=== PATIENT | female | born 1940 | race Caucasian/White ===

== ENCOUNTER 2016-06-15 07:49 | Outpatient (CLI) | payer MEDICARE ==
[~2016-06-15] VITALS: Ht 157.5 cm; Wt 86.4 kg
[~2016-06-15 07:49] MED LIST: /WARF5TA PO; ACTO45TA; ASPI81TA63; ASPI81TA85 PO; AUGM500T34 PO; BACT2OIN2 TOP; CEPH2CAP PO; COLA100C PO; COUM7.5T PO; DULC10SU2 PR; GLIM2TAB PO; GLUC500T PO; LASI40TA PO; MECL-68 PO; METF500T PO; NYST100024 TOP; PRIN5TAB PO; SENO8.6T10 PO; SITA50TAB PO; TOPR25TA PO; TRIC145T19 PO; TYLE325T5 PO; VITA100066 PO; ZOCO40TA PO
[2016-06-15] MEDS ORDERED: IRON SUCROSE 25 MG in NS 50 ML IV ONE (08:00)
[2016-06-15] MEDS ORDERED: IRON SUCROSE 475 MG in NS 250 ML IV ONE (09:00)
== END 2016-06-15 12:45 | disposition home or self-care (01) ==
LOC: M INFU 07:49
PROVIDERS: ATTEND Internal Medicine Nephrology
DX: D50.9 Iron deficiency anemia, unspecified (principal)
CPT/HCPCS: 96365; 96366; J1756

== ENCOUNTER 2016-09-04 14:33 | Inpatient (IN) | payer MEDICARE ==
[~2016-09-04] VITALS: Ht 152.4 cm; Wt 88.2 kg
[~2016-09-04 14:33] MED LIST changes: -COLA100C PO; +COLA100C3 PO
[2016-09-04] MEDS ORDERED: NS 1,000 ML IV SCH (14:53)
[2016-09-04] MEDS ORDERED: TOUJ1.2I SC ×2 (14:58→16:17)
[2016-09-04] MEDS ORDERED: ASPIRIN 81 MG CHEW TABLET PO ONE (15:00)
[2016-09-04] MEDS ORDERED: LISI10TA4 PO ×2 (15:04→16:17)
[2016-09-04] MEDS ORDERED: SITA50TAB PO ×2 (15:04→16:17)
[2016-09-04] MEDS ORDERED: FEBU40TA PO ×2 (15:06→16:17)
[2016-09-04] MEDS ORDERED: FERR325T3 PO (15:06)
[2016-09-04 15:08] LABS: BASO % 0.6 % (0.0-1.0); EOS # 0.1 K/mm3 (0.0-0.50); EOS % 1.8 % (0.0-3.0); LARGE UNSTAINED CELL # 0.1 K/mm3 (0.0-0.4); LARGE UNSTAINED CELL % 1.8 % (0.0-4.0); LYMPH # 1.7 K/mm3 (1.5-4.5); LYMPH % 27.9 % (24.0-44.0); MEAN CORPUSCULAR HEMOGLOBIN 27.3 pg (27.0-33.0); MEAN CORPUSCULAR HGB CONC 33.2 g/dl (32.0-36.5); MEAN CORPUSCULAR VOLUME 82.4 fl (80.0-96.0); MONO # 0.3 K/mm3 (0.0-0.8); MONO % 4.9 % (0.0-5.0); NEUTROPHILS # 3.6 K/mm3 (1.8-7.7); PLATELET COUNT, AUTOMATED 273 k/mm3 (150-450); RED CELL DISTRIBUTION WIDTH 14.7 % (11.5-14.5); WHITE BLOOD COUNT 5.6 K/mm3 (4.0-10.0)
[2016-09-04 15:15] LABS: INR 2.54
--- NOTE | 2016-09-04 15:26 | REP ---
Clinical: Chest pain . Comparison: 10/16/2013 . Findings: The mediastinum and cardiac silhouette are stable and mild cardiomegaly is again suggested. The lung crane demonstrate chronic changes without acute consolidation, effusion, or pneumothorax. Skeletal structures are intact. Impression: Stable cardiomegaly and chronic changes. No obvious acute cardiopulmonary process. Signed by Vamsi Clemente MD 09/04/2016 03:18 P
[2016-09-04 15:31] LABS: ALBUMIN 3.7 GM/DL (3.2-5.2); ALBUMIN/GLOBULIN RATIO 0.86 (1.00-1.93); ALKALINE PHOSPHATASE 42 U/L (45-117); ALT/SGPT 22 U/L (12-78); ANION GAP 7 MEQ/L (8-16); AST/SGOT 20 U/L (15-37); BILIRUBIN,DIRECT < 0.1 MG/DL (0.0-0.2); BILIRUBIN,TOTAL 0.3 MG/DL (0.2-1.0); BLOOD UREA NITROGEN 39 MG/DL (7-18); CALCIUM LEVEL 9.2 MG/DL (8.8-10.2); CARBON DIOXIDE LEVEL 28 MEQ/L (21-32); CHLORIDE LEVEL 105 MEQ/L (98-107); CREATININE FOR GFR 2.09 MG/DL (0.55-1.02); GLOMERULAR FILTRATION RATE 24.6 (>39); GLUCOSE, FASTING 155 MG/DL (83-110); POTASSIUM SERUM 4.1 MEQ/L (3.5-5.1); SODIUM LEVEL 140 MEQ/L (136-145)
[2016-09-04] MEDS ORDERED: FENO145T PO (16:17)
[2016-09-04] MEDS ORDERED: WARF-23 PO (16:17)
[2016-09-04] MEDS ORDERED: ASPI1TAB PO (16:17)
[2016-09-04] MEDS ORDERED: SIMV10TA2 PO (16:17)
[2016-09-04] MEDS ORDERED: VITA-122 PO (16:17)
[2016-09-04] MEDS ORDERED: FURO40TA2 PO (16:17)
[2016-09-04] MEDS ORDERED: PHYTONADIONE 5 MG TAB PO ONE (21:15)
[2016-09-04] MEDS ORDERED: DEXTROSE 50% 50 ML SYRINGE IV PRN (22:45)
[2016-09-04] MEDS ORDERED: GLUCOSE 4 GM CHEW TABLET PO PRN (22:45)
[2016-09-04] MEDS ORDERED: GLUCAGON FOR INJ 1 MG VIAL (J1610) SC PRN (22:45)
[2016-09-05] VITALS (16 sets, daily range): BP systolic 105–155; BP diastolic 49–72
[2016-09-05] MEDS: SIMVASTATIN 10 MG TAB PO SCH ×2 (00:30→20:45)
--- NOTE | 2016-09-05 02:29 | HPEPDOC ---
General Date of Admission September 04, 2016 at 21:52 Primary Care Physician: YANNI LOPEZ PA-C Attending Physician: RISA HUBER DO Chief Complaint The patient is a 76-year-old female admitted with a reason for visit of Bradycardia. Source: Patient, Family, RN notes reviewed, Old records Exam Limitations: No limitations Associated Symptoms: Shortness of breath (with exertion), Weakness History of Present Illness Ms. Coombs is a 76-year-old female who presents to [facility]'s emergency Department with bradycardia. She is accompanied by her daughter. Past medical history significant for atrial fibrillation, cerebral vascular accident, hypertension, dyslipidemia, diabetes mellitus, gout, vitamin D deficiency, left cataract, left-sided sensorineural hearing loss, arthritis, and history of right hand first digit trigger finger, history of bilateral carpal tunnel syndrome. Patient reports that up until 2 months ago she was in usual state of health when she presented to her software design manager's office and they noted that her heart rate was 44 bpm. She followed up with her primary care provider at that time, but no abnormalities were noted. On 08/26/2016, patient presented to her data analytics analyst's office and they noted that she was bradycardic at that time. They discontinued her metoprolol. Patient states that data analytics analyst has patient on 1200 mL fluid restriction. Daughter requested that data analytics analyst records be sent to patient's primary care provider and bottle house quality control technician for review. Primary care provider reviewed documentation as did bottle house quality control technician and patient had an appointment with bottle house quality control technician and had EKG performed on Wednesday. Patient had external heart monitor placed in bottle house quality control technician's office. Patient reports that she has not been feeling well and somewhat weak over the last day or 2. Prior to admission patient was sitting watching television when she received a call from bottle house quality control technician's office stating that her heart rate was low. Patient was subsequently advised to present to the emergency department. Patient admits to shortness of breath with exertion, palpitations, constipation , ankle edema, numbness in the fingertips, weakness. Patient denies lightheadedness, dizziness, headache, acute vision changes, acute hearing changes, sore throat, epistaxis, hematemesis chest pain, orthopnea , PND, nausea, vomiting, abdominal pain, urinary frequency, urinary urgency, hematuria, dysuria, diarrhea, melena, hematochezia, peripheral edema, lesions, rashes, and explainable bruises, tingling. Hospitalist service was consulted and patient was admitted for further medical management. Home Medications Scheduled (Jozefsmitharobby Traylorwiltonchristine) 300 Unit/Ml Inj, 45 UNIT SC QHS, (Reported) Aspirin (Aspirin 81) 81 Mg Tab, 81 MG PO QHS, (Reported) Cholecalciferol (Vitamin D3) 1,000 Unit Tab, 1,000 UNIT PO DAILY, (Reported) Febuxostat (Uloric) 40 Mg Tab, 40 MG PO 3XW, (Reported) MON/WED/FRI Fenofibrate (Fenofibrate) 145 Mg Tab, 145 MG PO DAILY, (Reported) Furosemide (Furosemide) 40 Mg Tab, 40 MG PO DAILY, (Reported) Lisinopril (Lisinopril) 10 Mg Tab, 10 MG PO DAILY, (Reported) Simvastatin (Simvastatin) 10 Mg Tab, 10 MG PO QHS, (Reported) Sitagliptin (Januvia) 50 Mg Tab, 50 MG PO DAILY, (Reported) Warfarin Sod (Warfarin Sodium) 5 Mg Tab, 5 MG PO QPM, (Reported) Allergies Coded Allergies: No Known Allergies (Verified , 09/02/09) Past Medical History Medical History 1. Atrial fibrillation 2. Cerebrovascular accident 3. Hypertension 4. Dyslipidemia 5. Diabetes mellitus 6. Gout 7. Vitamin D deficiency 8. Left cataract 9. Left sensorineural hearing loss 10. Urinary incontinence 11. History of right hand first digit trigger finger 12. 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 Dyspnea, Lt Headedness Gastrointestinal: Reports: Constipation, Denies: Nausea, Vomiting, Abdominal Pain, Diarrhea, Melena, Hematochezia Genitourinary: Reports: Incontinence, Denies: Dysuria, Frequency, Hematuria Hematologic: Denies: Bruising Endocrine: Denies: Polydipsia, Polyphagia Musculoskeletal: Denies: Back Pain, Joint Pain, Muscle Pain Neurological: Reports: Weakness, Numbness (fingertips) Physical Examination General Exam: Positive: Alert, Cooperative, No Acute Distress Eye Exam: Positive: PERRLA, Conjunctiva & lids normal, EOMI, Negative: Sclera icteric, Ptosis ENT Exam: Positive: Atraumatic, Pharynx Normal, Tongue Midline, Nares Patent, Negative: Mucous membr. moist/pink, Pharyngeal Edema Neck Exam: Positive: Supple, Negative: JVD, thyromegaly, Lymphadenopathy Chest Exam: Positive: Clear to auscultation, Normal air movement Heart Exam: Positive: Bradycardic, Normal S1, Normal S2, Negative: Gallops, Murmurs, Rubs Telemetry: Positive: Bradycardia, AV Block (first-degree noted on EKG performed in the ED) Abdomen Exam: Positive: Normal bowel sounds, Soft, Negative: Tenderness, Hepatospenomegaly, Mass, Hernia Extremity Exam: Positive: Normal pulses (bradycardic), Negative: Clubbing, Cyanosis, Edema, Tenderness, Swelling Skin Exam: Negative: Rash, Lesion Neuro Exam: Positive: Normal Speech, Strength at 5/5 X4 ext, Cranial Nerves 3- 12 NL Other physical findings Chest x-ray IMPRESSION: Stable cardiomegaly and chronic changes. No obvious acute cardiopulmonary process. Vital Signs Vital Signs Date Time Temp Pulse Resp B/P (MAP) Pulse Ox O2 Delivery O2 Flow Rate FiO2 09/05/16 00:49 Room Air 09/05/16 00:08 98.6 38 21 155/70 (98) 99 Height (in): 60 Weight (kg): 90.4 BMI (kg): 38.9 Laboratory Data Labs 24H Laboratory Tests 2 09/04/16 14:58: White Blood Count 5.6, Red Blood Count 4.48, Hemoglobin 12.2, Hematocrit 36.9, Mean Corpuscular Volume 82.4, Mean Corpuscular Hemoglobin 27.3, Mean Corpuscular Hemoglobin Concent 33.2, Red Cell Distribution Width 14.7H, Platelet Count 273, Neutrophils (%) (Auto) 63.0, Lymphocytes (%) (Auto) 27.9, Monocytes (%) (Auto) 4.9, Eosinophils (%) (Auto) 1.8, Basophils (%) (Auto) 0.6, Neutrophils # (Auto) 3.6, Lymphocytes # (Auto) 1.7, Monocytes # (Auto) 0.3, Eosinophils # (Auto) 0.1, Basophils # (Auto) 0.0, Large Unclassified Cells % 1.8 , Large Unclassified Cells # 0.1, Prothrombin Time 27.4H, Prothromb Time International Ratio 2.54, Anion Gap 7L, Glomerular Filtration Rate 24.6L, Calcium Level 9.2, Aspartate Amino Transf (AST/SGOT) 20, Alanine Aminotransferase (ALT/SGPT) 22, Alkaline Phosphatase 42L, Total Bilirubin 0.3, Direct Bilirubin < 0.1, Total Creatine Kinase 113, Creatine Kinase MB 1.0, Creatine Kinase MB Relative Index 0.88, Troponin I < 0.02, B-Type Natriuretic Peptide 301H, Total Protein 8.0, Albumin 3.7, Albumin/Globulin Ratio 0.86L 09/04/16 17:59: Bedside Glucose (Misc Panel) 136H 09/04/16 23:00: Total Creatine Kinase 91, Creatine Kinase MB 1.0, Creatine Kinase MB Relative Index 1.09, Troponin I < 0.02 09/05/16 00:13: Bedside Glucose (Misc Panel) 149H CBC/BMP Laboratory Tests 09/04/16 14:58 Red Blood Count 4.48, Mean Corpuscular Volume 82.4, Mean Corpuscular Hemoglobin 27.3, Mean Corpuscular Hemoglobin Concent 33.2, Red Cell Distribution Width 14.7 H, Neutrophils (%) (Auto) 63.0, Lymphocytes (%) (Auto) 27.9, Monocytes (%) (Auto) 4.9, Eosinophils (%) (Auto) 1.8, Basophils (%) (Auto) 0.6, Neutrophils # (Auto) 3.6, Lymphocytes # (Auto) 1.7, Monocytes # (Auto) 0.3, Eosinophils # ( Auto) 0.1, Basophils # (Auto) 0.0 Assessment/Plan Ms. Coombs is a 76-year-old female with a ast medical history significant for atrial fibrillation, cerebral vascular accident, hypertension, dyslipidemia, diabetes mellitus, gout, vitamin D deficiency, left cataract, left -sided sensorineural hearing loss, arthritis, and history of right hand first digit trigger finger, history of bilateral carpal tunnel syndrome who presents with bradycardia and found to have a first-degree atrioventricular heart block. Plan / VTE VTE Prophylaxis Ordered?: Yes (TEDs, sequential's, and knee-high compression stockings) Plan Plan Bradycardia Patient was found to have atrioventricular heart block. Cardiology was consulted. Patient takes Coumadin for atrial fibrillation. This has been reversed using vitamin K. Patient will be going for pacemaker in the morning. Is currently nothing by mouth. Cardiac markers thus far have been negative. Diabetes mellitus Patient is currently nothing by mouth secondary to procedure being performed in the a.m. Ordered sliding scale insulin with fingersticks every 6 hours. Patient is also on hypoglycemic protocol. Acute kidney injury superimposed on chronic kidney disease Likely patient is a little dehydrated. We'll monitor with daily BMP. Patient is on a 1200 mL fluid restriction. Atrial fibrillation EKG in emergency room shows first-degree AV block. Anticoagulation has been reversed with vitamin K. She will be going for pacemaker placement in the a.m. Hypertension Secondary to acute kidney injury, will hold patient's blood pressure medications for the time being. Could consider restarting after procedure tomorrow. Gout Currently holding patient's home medication secondary to acute kidney injury superimposed on chronic kidney disease. Could consider restarting after patient' s procedure tomorrow. Dyslipidemia Continue patient's simvastatin 10 mg daily at bedtime and TriCor 145 mg daily. Vitamin D deficiency Continue patient's 1,000 units of vitamin D daily. Constipation Started patient on Topamax 5 mg daily and Senokot-S 1 tablet twice a day. Disposition Admit: Intensive care unit Anticipated hospitalization: 2 nights Attending: Dr. Mercado Consultation: Dr. Huggins Diet: Make NPO Activity: Bedrest (with commode) Diagnostics: Check Labs, Repeat Labs in AM Anticipated Discharge: Home SANDRA TAMEZME-I September 05, 2016 02:29
--- NOTE | 2016-09-05 04:43 | CR ---
DATE OF CONSULTATION: 09/04/2016 PRIMARY PHYSICIAN: [facility]. PRIMARY COMMUNITY HEALTH DIRECTOR: Dr. Huggins. SHELL FISHERMAN: Dr. Davis. HISTORY OF PRESENT ILLNESS: 76-year-old woman with a history of hypertension, hyperlipidemia, diabetes mellitus, chronic kidney disease, CVA, and gout, who was sent to the emergency room (ER) today. She was found to have 2:1 atrioventricular (AV) block. Patient is being admitted by hospitalist. Mrs. Alessandra Coombs was recently seen by her primary about a week ago and at that time, she was noticed to be bradycardic and the beta christiano/carvedilol was discontinued. I was informed of the situation on Wednesday and patient came in to the office and had a Holter that revealed sinus rhythm with first-degree AV block, Mobitz I, as well as Mobitz II second-degree AV block, and intermittent 2:1 AV block. Patient has been off the beta christiano since 08/26/2016, and for this reason, she was called to go the ER for further evaluation. She was admitted and the plan is to proceed with a permanent pacemaker. She has been having generalized weakness and occasional dizziness, but denies any chest pain. There is no manifestation of orthopnea, paroxysmal nocturnal dyspnea (PND) or increasing pedal edema. When I saw her in the ER this afternoon, she was lying supine in bed in no acute distress at rest and her daughter was at bedside. There is no report of bleeding. There is no nausea, vomiting, diarrhea, melena or hematemesis. She has a past medical history positive as mentioned above for diabetes mellitus , hypertension, chronic kidney disease, hyperlipidemia, and CVA for which she has been on Coumadin. There is no known history of atrial fibrillation, obstructive coronary artery disease, myocardial infarction, thyroid disorders. She does have a history of arthritis/gout and she has lost her hearing in the left ear. PAST SURGICAL HISTORY: None significant. MEDICATIONS: Prior to coming to the hospital: - Tylenol 500 mg as needed for arthritic pain - aspirin 81 mg by mouth daily - Lasix 40 mg by mouth daily - ferrous sulfate 324 mg by mouth three times weekly - Januvia one by mouth daily - fenofibrate 145 mg by mouth daily - lisinopril 10 mg by mouth daily - Coumadin as needed - simvastatin 10 mg by mouth daily - Toujeo 45 units subcutaneously daily at bedtime - she has been off the beta christiano since 08/26/2016 FAMILY HISTORY: Noncontributory. SOCIAL HISTORY: Patient does not smoke or abuse alcohol. She has a daughter who lives in the area and very supportive. ALLERGIES: No known drug allergies. ADVANCED DIRECTIVES: Patient is a FULL CODE. PHYSICAL EXAMINATION: Patient is alert and oriented, in no acute distress at rest and very pleasant. Vital signs in the ER upon arrival revealed a blood pressure of 164/60 with a pulse of 45, respirations 18, and oxygen saturation was 99% with a temperature of 97.7 degrees Fahrenheit. Examination of the head, ears, eyes, nose and throat: Atraumatic. Neck is supple. No jugular venous distention (JVD) or carotid bruits. The lungs were clear bilaterally on auscultation without any wheezing or crackles. The heart examination revealed normal S1, S2 without gallops. The point of maximal impulse (PMI) is not displaced. There is no rub. There is a systolic murmur grade 1-2 over 6 at the lower left sternal border and at the apex without any radiation. Abdomen is unremarkable. Extremities reveal trace bilateral ankle edema. Neurological examination grossly is negative for focal deficit. LABORATORIES: CBC revealed a WBC of 5.6, hemoglobin 12.2, hematocrit 36.9, and platelets 272,000. PT was 27.4 with an INR of 2.54. BMP revealed a glucose of 165, BUN 39, creatinine 2.09, GFR 24.6, sodium 140, potassium 4.1, chloride 105, CO2 28, calcium 9.2, AST 20, ALT 22, alkaline phosphatase 42, and total bilirubin 0.3. Direct bilirubin was less than 0.01, total protein 8.0, albumin 3.7. Serum troponin was less than 0.02. BNP was 301. Chest x-ray was done and was negative for any acute disease process. Telemetry revealed sinus rhythm with episode of 2:1 AV block. IMPRESSION: 2:1 atrioventricular (AV) block, symptomatic in this 76-year-old woman who has been previously on a beta christiano, but stopped since 08/26/2016. Patient needs a permanent pacemaker and this was discussed with her, as well as her daughter, patient has agreed to proceed. Case was discussed with Dr. Tomas Gonzalez, who is willing to implant the device for her. Her international normalized ratio (INR) is not quite therapeutic and she will be given a small dose of vitamin K and hopefully will proceed tomorrow with the implantation. She is currently stable and there is no need for a temporary device. She will be monitored. It was a pleasure to participate in the care in Mrs. Alessandra Coombs for her underlying cardiac condition. I will continue to monitor along with you while in the hospital. AQUILES
[2016-09-05] MEDS: HumaLOG INSULIN (NovoLOG) PER UNIT SC SCH ×4 (06:00→18:00)
[2016-09-05 06:39] LABS: MEAN CORPUSCULAR HEMOGLOBIN 26.8 pg (27.0-33.0); MEAN CORPUSCULAR HGB CONC 31.9 g/dl (32.0-36.5); MEAN CORPUSCULAR VOLUME 83.7 fl (80.0-96.0); RED CELL DISTRIBUTION WIDTH 14.6 % (11.5-14.5); WHITE BLOOD COUNT 5.3 K/mm3 (4.0-10.0)
[2016-09-05 06:43] LABS: INR 2.46
[2016-09-05 06:58] LABS: ANION GAP 6 MEQ/L (8-16); BLOOD UREA NITROGEN 37 MG/DL (7-18); CALCIUM LEVEL 8.8 MG/DL (8.8-10.2); CARBON DIOXIDE LEVEL 27 MEQ/L (21-32); CHLORIDE LEVEL 109 MEQ/L (98-107); CREATININE FOR GFR 1.83 MG/DL (0.55-1.02); GLOMERULAR FILTRATION RATE 28.6 (>39); GLUCOSE, FASTING 101 MG/DL (83-110); MAGNESIUM LEVEL 2.6 MG/DL (1.8-2.4); PHOSPHORUS LEVEL 3.2 MG/DL (2.5-4.9); POTASSIUM SERUM 3.9 MEQ/L (3.5-5.1); SODIUM LEVEL 142 MEQ/L (136-145)
[2016-09-05] MEDS ORDERED: PHYTONADIONE 2.5 MG **1/2 TAB PO ONE (09:30)
[2016-09-05] MEDS: VITAMIN D 1,000 INTERNATIONAL UNITS TABLET PO SCH (09:38)
[2016-09-05] MEDS: BISACODYL 5 MG TAB PO SCH (09:38)
[2016-09-05] MEDS: FENOFIBRATE 145 MG TAB (TRICOR) PO SCH (09:38)
[2016-09-05] MEDS: SENOKOT S TAB PO SCH ×2 (09:38→20:44)
--- NOTE | 2016-09-05 10:27 | IPN ---
DATE OF SERVICE: 09/05/2016 A 76-year-old female seen at bedside. No overnight issues reported. She does continue to have some significant bradycardia and does have cutaneous pacers in place. Dr. Huggins has been consulted; and to my understanding, she is waiting for implantable pacer. OBJECTIVE: Temperature is 98.1, pulse 44, respiratory rate is 21, blood pressure (BP) 115/57, SPO2 is 95% on room air. General: The patient appears to be in no acute distress. Is alert, pleasant. HEENT: Unremarkable. Lungs: Clear. Heart: Regular rate and rhythm. Abdomen: Soft. Extremities: No edema. No calf tenderness. LABORATORIES: White count is 5.3, hemoglobin 10.8, platelets 253. Sodium is 142, potassium 3.9, chloride 109, bicarbonate 27, anion gap 6, BUN is 37, creatinine 1.83, glucose 101, magnesium 2.6, troponin less than 0.02 times three. ASSESSMENT AND PLAN: 1. Symptomatic bradycardia. She does appear to have AV block. Her Coumadin has been reversed and currently waiting for pacemaker placement. 2. Atrial fibrillation. The patient is rate controlled. Again, she does have a significant AV block with bradycardia. Coumadin was reversed with vitamin K and awaiting pacemaker placement. 3. Diabetes. She remains nothing by mouth. Continue with fingersticks every 6 hours. Coverage with insulin as needed with hypoglycemic protocol in place after she has the pacemaker placed. She will need to be advanced on her diet. Consistent-carbohydrate diet, and we can start checking fingersticks before meals and at bedtime with sliding scale coverage. 4. Acute kidney injury superimposed on chronic kidney disease. Continue to monitor renal function. 5. Hypertension, stable. Will continue to monitor for now. Holding any rate-limiting drugs. 6. Gout, stable. 7. Dyslipidemia. Continue on statins. She takes Tricor daily, as well. 8. Vitamin D deficiency. Continue with supplementation. 9. Constipation. Continue with bowel regimen. 10. Deep venous thrombosis (DVT) prophylaxis. Thromboembolic deterrents (TEDs) and sequentials. Holding on Coumadin at this time. She does have a congestive heart failure, hypertension, age, diabetes, stroke (CHADS)-vascular disease, age, sex category (VASc) risk factor with her atrial fibrillation. She will need this to be resumed after the pacemaker has been placed.
[2016-09-05] MEDS ORDERED: PHYTONADIONE INJection 5 MG in NS 50 ML IV ONE (11:00)
[2016-09-05] MEDS ORDERED: PHYTONADIONE 5 MG TAB PO ONE (11:00)
[2016-09-05] MEDS: MUPIROCIN 2% OINT 22 GM TUBE TOP SCH ×3 (12:33→20:45)
--- NOTE | 2016-09-05 13:29 | IPN ---
DATE OF SERVICE: 09/05/2016 Mrs. Alessandra Coombs was seen earlier this morning. She was sitting in a chair in no acute distress at rest. She denies any chest pain, shortness of breath, palpitations, dizziness and lightheadedness. There is no diaphoresis. Her nurse was at bedside. She says that she had a good night and she was able to sleep well. She has no cough. There is no report of fever or chills. She was admitted yesterday. She was called in order to go to the ER for this admission because she was found to be bradycardic with underlying 2:1 AV block. She was on a beta-christiano and it was discontinued last week by her primary on/or about 05/29/2016 as an outpatient. On physical examination, patient is alert and oriented, in no acute distress at rest and her vital signs this morning when I saw her revealed a blood pressure of 140/56 with a pulse that varied to between 34 up to 46, respirations 18 to 20 and her maximum temperature is 98.1 degrees Fahrenheit with an oxygen saturation of 95-99% on room air. Examination of the head, ears, eyes, nose and throat: Atraumatic. Neck is supple. No jugular venous distention (JVD). The lungs are clear bilaterally on auscultation. The heart examination revealed an irregular heart sound without gallops. The PMI is not displaced. There is no rub. Abdomen is unremarkable. Extremities revealed no significant pedal edema. LABORATORIES: CBC done today revealed a WBC of 5.3, hemoglobin 10.8, hematocrit 33.8 and platelets 253,000. BMP revealed a sodium of 142, potassium 3.9, chloride 109, CO2 27, BUN 37, creatinine 1.83 and GFR 28.6, fasting glucose 101, and calcium 8.8. Serum magnesium is 2.6. Serum Troponin remained negative as less than 0.02. PT today is 26.7 with an INR of 2.46. Telemetry was reviewed and revealed 2:1 AV block. IMPRESSION: 76-year-old woman with history of hypertension, diabetes mellitus, hyperlipidemia, and CVA, was symptomatic with dizziness and lightheadedness and her beta-christiano was discontinued by her primary about a week ago and then she was found to be bradycardic with 2:1 AV block. The patient was admitted yesterday. She needs a permanent pacemaker and this was discussed with her as well as her daughter. This also was discussed with Dr. Tomas Gonzalez yesterday and today, and the plan is to proceed with a permanent pacemaker tomorrow morning if she remains stable. She already has received a total of 5 mg of vitamin K and Dr. Gonzalez plans to give her some extra dose so we can proceed tomorrow. We can proceed tomorrow with the permanent pacemaker implantation. This was discussed with the patient, and she is in agreement. Yesterday in the ER, her blood pressure was elevated but it seemed that this has been stable. She will be monitored. Her labs, her BUN and creatinine remain stable, and her GFR seems to have improved, so she continues to have good cardiac output. While in the hospital, I will check her thyroid function. JASOND
[2016-09-05 14:22] LABS: INR 2.03
[2016-09-06] VITALS (10 sets, daily range): BP systolic 118–175; BP diastolic 46–71
[2016-09-06 04:47] LABS: MEAN CORPUSCULAR HEMOGLOBIN 27.2 pg (27.0-33.0); MEAN CORPUSCULAR HGB CONC 32.7 g/dl (32.0-36.5); MEAN CORPUSCULAR VOLUME 83.2 fl (80.0-96.0); RED CELL DISTRIBUTION WIDTH 14.7 % (11.5-14.5); WHITE BLOOD COUNT 5.8 K/mm3 (4.0-10.0)
[2016-09-06 05:01] LABS: INR 1.34
[2016-09-06 05:16] LABS: CALCIUM LEVEL 9.1 MG/DL (8.8-10.2); CREATININE FOR GFR 1.71 MG/DL (0.55-1.02)
[2016-09-06] MEDS: HumaLOG INSULIN (NovoLOG) PER UNIT SC SCH ×4 (05:50→17:33)
[2016-09-06] MEDS: BISACODYL 5 MG TAB PO SCH (08:22)
[2016-09-06] MEDS: SENOKOT S TAB PO SCH ×2 (08:23→20:06)
[2016-09-06] MEDS: MUPIROCIN 2% OINT 22 GM TUBE TOP SCH (08:23)
[2016-09-06] MEDS ORDERED: ISOVUE-300 61% 50ML VIAL (Q9967) As Ordered ONE (08:40)
[2016-09-06] MEDS ORDERED: LIDOCAINE 1% SDV INJ 30 ML VIAL As Ordered ONE (08:40)
[2016-09-06] MEDS ORDERED: ceFAZolin 2 GM/D5W 50 ML IV BAG (J0690) As Ordered ONE (08:55)
--- NOTE | 2016-09-06 09:09 | IPN ---
DATE: 09/06/2016 76-year-old female seen at bedside. Resting comfortably. She is scheduled for pacemaker insertion later this morning. Denies any chest pain, palpitations, nausea, vomiting, shortness of breath. No abdominal pain. OBJECTIVE: Temperature is 98.8, pulse 37, respiratory rate 20, BP 131/56, SPO2 is 94% on room air. General: The patient appears to be in no acute distress. She is alert and oriented, pleasant. HEENT: Unremarkable. Lungs: Clear. Heart: Regular rate. Abdomen: Soft, obese, nontender. Extremities: No edema or calf tenderness. LABORATORY DATA: White count 5.8, hemoglobin 11, platelets are 233,000, INR 1.34, sodium 142, potassium 4.0, chloride 109, bicarb 25, anion gap 8, BUN 37, creatinine 1.71, glucose 120, troponin times three is negative. ASSESSMENT/PLAN: 1. Symptomatic/significant bradycardia with what appears to be AV block. I appreciate Dr. Huggins and Dr. Gonzalez's assistance. The patient is to have a pacemaker placed later this morning. Her INR is below 2. Coumadin is currently on hold. We will resume after placement pending further recommendations by cardiology. 2. Atrial fibrillation. The patient is technically rate controlled, however, I am concerned that she does have bradycardia and she is scheduled for pacemaker placement later this morning 3. Diabetes. She does continue nothing by mouth for her procedure, we will advance her diet once the procedure is done and resume consistent carb diet with sliding scale insulin based on fingersticks before meals and at bedtime. 4. Acute kidney injury superimposed on chronic kidney disease (CKD). We will continue to monitor renal function, which appears to be stable. 5. Hypertension, stable. Hold parameters on her medications. 6. Gout, stable. 7. Dyslipidemia. Continue statins and Tricor. 8. Vitamin D deficiency. She receives supplementation. 9. Constipation. Continue bowel regimen. 10. Deep venous thrombosis (DVT) prophylaxis with thromboembolic deterrent stockings (TEDS) and sequential compression devices (SCDs). Coumadin is on hold currently. DISPOSITION: Anticipate that she will have the pacemaker placement today. We will want to continue to follow for the next 24-48 hours to see how she does with this.
--- NOTE | 2016-09-06 09:10 | ECGEPIP ---
Stationary ECG Study [facility] - ED Test Date: 2016-09-04 Pat Name: MARIFER RAMOS Department: Room: - Gender: F Sensitized Paper Tester: marco : 1940 Requested By: Barbara Alarcon Order Number: [id number] Reading MD: Uziel Gaming Measurements Intervals [place] Rate: 42 P: 83 IA: 269 QRS: 23 QRSD: 110 T: 33 QT: 459 QTc: 385 Interpretive Statements SINUS BRADYCARDIA WITH FIRST DEGREE AV BLOCK SIMILAR TO 10/16/13 Electronically Signed On 09-06-2016 9:10:45 EDT by Uziel Gaming
[2016-09-06] MEDS ORDERED: PROPOFOL 500 MG/50 ML VIAL As Ordered ONE (09:40)
[2016-09-06] MEDS ORDERED: MIDAZOLAM INJ 2 MG/2 ML VIAL (J2250) As Ordered ONE (09:40)
[2016-09-06] MEDS ORDERED: ePHEDrine SULFATE 25 MG/5 ML(5MG/ML) SYRINGE As Ordered ONE (10:15)
[2016-09-06] MEDS ORDERED: fentaNYL 100 MCG/2 ML INJECTION (J3010) As Ordered ONE (10:52)
[2016-09-06] MEDS ORDERED: NEOSPORIN TOP OINT 15GM As Ordered ONE (10:52)
[2016-09-06] MEDS ORDERED: PROPOFOL 200 MG/20 ML VIAL As Ordered ONE (10:54)
[2016-09-06] MEDS ORDERED: NEOSPORIN TOP OINT 15GM XX ONE (11:24)
--- NOTE | 2016-09-06 11:35 | REP ---
Clinical: Pacemaker placement. Technique: Single fluoroscopic image. Findings: Single intraoperative fluoroscopic image demonstrates dual chamber pacemaker wires in satisfactory position overlying the right atrium and right ventricle. Total fluoroscopic time 4 minutes 58 seconds. Impression: Pacemaker leads in satisfactory position. Signed by Vamsi Clemente MD 09/06/2016 11:26 A
--- NOTE | 2016-09-06 11:47 | REP ---
Clinical: Status post pacemaker. Comparison: 09/04/2016. Findings: Dual chamber pacemaker with leads overlying the right atrium and right ventricle. No pneumothorax. Mediastinum and cardiac silhouette stable. Lung crane demonstrate diffuse chronic interstitial changes without obvious acute consolidation or effusion. Skeletal structures stable. Impression: Status post pacemaker. No pneumothorax. Diffuse chronic stable interstitial changes. Signed by Vamsi Clemente MD 09/06/2016 11:38 A
--- NOTE | 2016-09-06 12:13 | RO ---
DATE OF PROCEDURE: 09/06/2016 PREOPERATIVE DIAGNOSIS: Symptomatic Mobitz type II second degree AV block. POSTOPERATIVE DIAGNOSIS: Symptomatic Mobitz type II second degree AV block. FINDINGS: Symptomatic Mobitz type II second degree AV block. PROCEDURE PERFORMED: Implantation of a permanent [employer] dual chamber pacemaker system. SURGEON: Tomas Gonzalez MD [employer]ALL [employer] DEPARTMENT SUPERVISOR: None. ANESTHESIA: 1% lidocaine local anesthetic/monitored anesthetic care. SPECIMENS: None. ESTIMATED BLOOD LOSS: Less than 10 mL. REPLACED: No blood products were placed. DRAINS: None. COMPLICATIONS: None. DESCRIPTION OF PROCEDURE: The patient was prepped and draped over the left pectoral region. 3M Ioban film was applied. Lidocaine 1% was used for local anesthetic. The left subclavian vein was entered percutaneously with a micropuncture needle with the guidance from a left subclavian vein venogram performed with a total volume of 15 mL of a mixture of three-quarters contrast/one-quarter normal saline. This was then Guidewire exchanged with the Guidewire that came with one of the 8 Icelandic sheaths. Next, an incision about 1 cm below the entrance site of the Guidewire and approximately parallel to the left clavicle was made, about 3 inches in length, using a [employer] PEAK PlasmaBlade. The PEAK PlasmaBlade was used to dissect through the fatty layer and through the fibrous Brenna's fascia. The pacemaker pocket was then formed in a caudal direction using blunt dissection, using two fingers to separate the preperitoneal fascia from the Brenna's fascia. Next, the Guidewire was pulled through the skin into the incision site. Next, another micropuncture needle was used to get separate venous access at the level of the pectoral muscle, more lateral to the first Guidewire, using the first Guidewire as a radiographic marker. This was then Guidewire exchanged for the other Guidewire that came with the other 8 Icelandic sheath. Next, an #8 Icelandic sheath was placed over the more lateral of the of the guidewires, was used for vein access for the ventricle lead. The ventricle lead was placed into the right ventricular apex position and secured with 10 turns. This first position was not satisfactory with regards to R wave amplitude and therefore the lead was unscrewed and repositioned at another position in the right ventricular apex, which was found to be satisfactory electrically and anatomically. 10 volts high output pacing did not result in any diaphragm stimulation by palpation on both sides of the diaphragm. Next, the 8 Icelandic sheath was removed and the ventricle lead was secured to the pectoral muscle using the supplied tie down sleeve using three individual sutures consisting of #0 Ethibond. Next, the other 8 Icelandic sheath was placed over the more medial of the guidewires and was used for vein access for the atrial lead. The atrial lead was placed into the right atrial appendage position and was secured with a total of 10 turns. This position was found to be electrically and anatomically satisfactory and without any diaphragm stimulation observed by palpation on both sides with 10 volts high output pacing. The 8 Icelandic sheath was then broken apart and removed and the atrial lead was secured to the pectoral muscles using three individual sutures consisting of #0 Ethibond. Next, another #0 Ethibond suture was placed at the pectoral muscle floor to serve as the tie down for the pacemaker pulse generator. Next, I took a medium sized TYRX antimicrobial envelope and cut it into six pieces. These six pieces were placed into the pacemaker pocket. Next, the ventricular lead and atrial lead terminal pins were placed into their respective ports in the header of the pacemaker pulse generator and each one was tightened by securing the set screws with a hex screwdriver. The excess lead material was then coiled underneath the pacemaker pulse generator and place along with the pacemaker pulse generator into the pacemaker pocket with the excess lead material below and pulse generator on top. The pulse generator was then secured to the pectoral muscle with the previously placed #0 Ethibond suture. The deep layer was closed using individual sutures consisting of #2-0 Vicryl. An additional four sutures consisting of #3-0 Vicryl was used to help approximate the more superficial layer. Next, sutures were used to close the skin. Following this, triple antibiotic ointment was applied over the incision followed by a dry dressing, followed by a Bioclusive dressing. The pacemaker pulse generator implanted was a [employer] Assurity MRI, model [id number] with serial number [id number]. The right atrial lead implanted was a [employer] Tendril MRI with model number [id number], which was 46 cm and had serial number [id number]. Testing of atrial lead with the PSA analyzer showed capture threshold of 1.4 volts at 0.4 milliseconds with P wave amplitude of 2.7 millivolts and lead impedance of 654 ohms. Device based testing showed capture threshold of 1.2 volts at 0.4 milliseconds with lead impedance of 530 ohms, and P wave amplitude of 1.8 millivolts. The right ventricle lead implanted was a [employer] Tendril MRI, model number [id number], which was 52 cm in length and had serial number [id number]. Testing of the ventricular lead with the PSA analyzer showed a capture threshold of 0.7 volts at 0.4 milliseconds with R wave amplitude of 9.3 millivolts and lead impedance of 706 ohms. Device based testing in the operating room showed a capture threshold of 0.7 volts at 0.4 milliseconds with lead impedance of 710 ohms and R wave amplitude of 11.5 millivolts. cc: RINA Coker MD Khalid Sindhu, MD
[2016-09-06] MEDS ORDERED: fentaNYL 100 MCG/2 ML INJECTION (J3010) IV PRN (12:15)
[2016-09-06] MEDS ORDERED: LR 1,000 ML IV SCH (12:15)
[2016-09-06] MEDS ORDERED: ONDANSETRON 4MG/2ML VIAL (J2405) IV PRN (12:15)
[2016-09-06] MEDS ORDERED: ACETAMINOPHEN TAB 650MG DOSE (2X325MG) PO PRN (12:15)
[2016-09-06] MEDS: VITAMIN D 1,000 INTERNATIONAL UNITS TABLET PO SCH (12:38)
[2016-09-06] MEDS: FENOFIBRATE 145 MG TAB (TRICOR) PO SCH (12:38)
--- NOTE | 2016-09-06 19:21 | ECGEPIP ---
Stationary ECG Study [facility] Test Date: 2016-09-06 Pat Name: MARIFER RAMOS Department: Room: [place] [address] Gender: F Law Firm Consultant: JONATHAN : 1940 Requested By: Tomas Gonzalez Order Number: [id number] Reading MD: Blu Huggins Measurements Intervals [place] Rate: 69 P: 94 MS: 148 QRS: -70 QRSD: 168 T: 85 QT: 474 QTc: 511 Interpretive Statements ELECTRONIC ATRIAL PACEMAKER ELECTRONIC VENTRICULAR PACEMAKER ABNORMAL RHYTHM ECG LAST TRACING ON 09/04/2016 AT 14:52:55. PATIENT WAS IN SINUS RHYTHM WITH A SLOW HEART RATE AND 2-1 AV BLOCK Electronically Signed On 09-06-2016 19:21:26 EDT by Blu Huggins
[2016-09-06] MEDS: SIMVASTATIN 10 MG TAB PO SCH (20:05)
[2016-09-07 00:06] VITALS: BP 146/61
[2016-09-07 04:00] VITALS: BP 150/65
[2016-09-07 04:36] LABS: MEAN CORPUSCULAR HEMOGLOBIN 27.5 pg (27.0-33.0); MEAN CORPUSCULAR HGB CONC 33.2 g/dl (32.0-36.5); RED CELL DISTRIBUTION WIDTH 14.6 % (11.5-14.5); WHITE BLOOD COUNT 5.1 K/mm3 (4.0-10.0)
[2016-09-07 04:53] LABS: CREATININE FOR GFR 1.37 MG/DL (0.55-1.02)
[2016-09-07 04:54] LABS: CALCIUM LEVEL 8.5 MG/DL (8.8-10.2); POTASSIUM SERUM 4.1 MEQ/L (3.5-5.1)
[2016-09-07] MEDS: HumaLOG INSULIN (NovoLOG) PER UNIT SC SCH ×4 (07:30→17:22)
[2016-09-07 08:00] VITALS: BP 183/65
--- NOTE | 2016-09-07 08:04 | REP ---
Clinical: Status post pacemaker placement. Comparison: 09/06/2016. Technique: PA and lateral. Findings: Dual lead pacemaker with leads overlying the right atrium and right ventricle. No pneumothorax. Mediastinum and cardiac silhouette are stable and within normal limits. Lung crane demonstrate chronic interstitial changes without focal consolidation, effusion, or pneumothorax. Skeletal structures demonstrate degenerative changes. Impression: Status post pacemaker with leads in satisfactory position. No pneumothorax. Chronic stable changes without obvious acute cardiopulmonary process. Signed by Vamsi Clemente MD 09/07/2016 07:56 A
[2016-09-07] MEDS: ASPIRIN 81 MG ENTERIC TAB PO SCH (08:11)
[2016-09-07] MEDS: FENOFIBRATE 145 MG TAB (TRICOR) PO SCH (08:12)
[2016-09-07] MEDS: VITAMIN D 1,000 INTERNATIONAL UNITS TABLET PO SCH (08:12)
[2016-09-07] MEDS: ASCORBIC ACID 250 MG TAB PO SCH ×2 (09:00→21:00)
[2016-09-07] MEDS: SENOKOT S TAB PO SCH ×2 (09:00→21:00)
[2016-09-07] MEDS: BISACODYL 5 MG TAB PO SCH (09:00)
--- NOTE | 2016-09-07 10:46 | IPN ---
DATE: 09/07/2016 Alessandra is seen in intensive care unit (ICU). She had a pacemaker inserted, dual chamber pacer by Dr. Gonzalez last night. It is functioning well by telemetry. Blood pressure is elevated today 183/65. No chest pain or shortness of breath. Blood pressure 183/65, pulse 70, 99% oxygen saturation. She is smiling, alert, conversant. Lungs clear. Heart: Regular rhythm. Abdomen: Soft, nontender. No peripheral edema. CBC normal. Creatinine is down to 1.3. INR is 1.3. IMPRESSION: 1. Symptomatic bradycardia status post dual chamber pacer. 2. Atrial fibrillation. Restart warfarin. 3. Acute kidney injury. Creatinine is back to baseline. 4. Hypertension. Medications adjusted today. 5. Diabetes. Blood sugar is under adequate control. Just scant amount of coverage.
[2016-09-07] MEDS: amLODIPine 5 MG TAB PO SCH (10:49)
--- NOTE | 2016-09-07 13:37 | IPN ---
DATE: 09/07/2016 Mrs. Alessandra Coombs was seen this morning, she was in supine in bed in no acute distress at rest. She stated she feels much better since the permanent pacemaker implantation done yesterday by Dr. Tomas Gonzalez for symptomatic 2-1 AV block. She denies any dizziness, palpitations. Her blood pressure was elevated today and she was started on amlodipine by Dr. Mclaughlin. She denies any bleeding. She has some mild discomfort at the site of the pacemaker implantation in the left upper chest. On physical examination, patient is alert and oriented, in no acute distress at rest and her last vital signs done at about 8 this morning revealed a blood pressure of 183/65 with pulse of 69, respirations 17 and maximum temperature is 98.2 degrees Fahrenheit with an oxygen saturation of 99% on 2 liters nasal cannula. Examination of the head: Atraumatic. Neck is supple, no jugular venous distention (JVD). The lungs were clear bilaterally to auscultation without any wheezing or crackles. Heart examination revealed normal S1, S2 for gallops. The PMI is not displaced. There is no rub. Abdomen is unremarkable. Extremities reveal trace bilateral ankle edema. LABS: BMP done today 09/07/2016 revealed a sodium of 140, potassium 4.1, chloride 110, CO2 25, BUN 26, creatinine 1.7, glomerular filtration rate 40.0, fasting glucose 105 and calcium 8.5. On admission, the BUN and creatinine were 39 and 2.09 respectively with a glomerular filtration rate of 24.6. CBC done today revealed a WBC of 5.1, hemoglobin 11.0, hematocrit 33.1 and platelets 225,000. Electrocardiogram was reviewed done on 09/06/2016 at 11:36:44. It revealed AV Pacing activity at a rate of 69 beats per minute. Mrs. Alessandra Coombs is stable, status post permanent pacemaker implantation for symptomatic 2-1 AV block. The pacemaker was checked today by Dr. Gonzalez and it is working fine. If there is no other medical concern, patient can be discharged home today and she has an appointment with Dr. Tomas Gonzalez in his office in about a week and I will see her at my office within 1-2 weeks. She was restarted on beta christiano, she is now on amlodipine. In the past, she was on lisinopril but has been on hold in the hospital and kidney function has improved. She has been seeing Dr. Davis and he will address that as outpatient. There is a questionable history of atrial fibrillation and this will be addressed as outpatient. AQUILES
[2016-09-07] MEDS: METOPROLOL SUCC (TopROL XL) 50MG **XL** TAB PO SCH (13:57)
[2016-09-07 16:00] VITALS: BP 130/61
[2016-09-07] MEDS ORDERED: WARFARIN SOD 5 MG TAB PO SCH (17:00)
[2016-09-07] MEDS ORDERED: ATORVASTATIN 10 MG TAB PO SCH (18:00)
[2016-09-07 20:00] VITALS: BP 135/61
[2016-09-07] MEDS ORDERED: HumaLOG INSULIN (NovoLOG) PER UNIT SC SCH (21:00)
[2016-09-08] VITALS: BP 139/96
[2016-09-08 04:00] VITALS: BP 150/64
[2016-09-08 04:54] LABS: MEAN CORPUSCULAR HEMOGLOBIN 27.8 pg (27.0-33.0); MEAN CORPUSCULAR HGB CONC 33.7 g/dl (32.0-36.5); MEAN CORPUSCULAR VOLUME 82.3 fl (80.0-96.0); RED CELL DISTRIBUTION WIDTH 14.5 % (11.5-14.5); WHITE BLOOD COUNT 5.8 K/mm3 (4.0-10.0)
[2016-09-08 05:06] LABS: INR 1.22
[2016-09-08 05:12] LABS: CALCIUM LEVEL 9.4 MG/DL (8.8-10.2); CREATININE FOR GFR 1.26 MG/DL (0.55-1.02); GLOMERULAR FILTRATION RATE 44.1 (>39); POTASSIUM SERUM 4.3 MEQ/L (3.5-5.1)
[2016-09-08 08:00] VITALS: BP 180/77
[2016-09-08] MEDS: HumaLOG INSULIN (NovoLOG) PER UNIT SC SCH ×2 (08:29→12:27)
[2016-09-08] MEDS: METOPROLOL SUCC (TopROL XL) 50MG **XL** TAB PO SCH (08:41)
[2016-09-08] MEDS: ASPIRIN 81 MG ENTERIC TAB PO SCH (08:41)
[2016-09-08] MEDS: VITAMIN D 1,000 INTERNATIONAL UNITS TABLET PO SCH (08:41)
[2016-09-08 08:42] VITALS: BP 175/75
[2016-09-08] MEDS: SENOKOT S TAB PO SCH (08:42)
[2016-09-08] MEDS: amLODIPine 5 MG TAB PO SCH (08:42)
[2016-09-08] MEDS: BISACODYL 5 MG TAB PO SCH (09:00)
[2016-09-08] MEDS: ASCORBIC ACID 250 MG TAB PO SCH (09:00)
[2016-09-08 10:00] VITALS: BP 166/72
[2016-09-08] MEDS ORDERED: ASCO25TA PO (11:00)
[2016-09-08] MEDS ORDERED: METO-207 PO (11:00)
[2016-09-08] MEDS ORDERED: ASPI81TAEC PO (11:00)
[2016-09-08] MEDS ORDERED: AMLO5TAB2 PO (11:00)
[2016-09-08] MEDS ORDERED: ACET65TA PO (11:00)
[2016-09-08 12:00] VITALS: BP 169/74
--- NOTE | 2016-09-09 08:01 | DSES ---
DATE OF ADMISSION: 09/04/2016 DATE OF DISCHARGE: 09/08/2016 PRIMARY CARE PROVIDER: Bar Murray PA-C DISCHARGE DIAGNOSES: 1. Symptomatic 2:1 atrioventricular (AV) block, status post permanent pacemaker implantation. 2. Paroxysmal atrial fibrillation. On Coumadin. 3. Acute kidney injury on chronic kidney disease stage III. 4. Hypertension. 5. Diabetes. 6. Gout. 7. Dyslipidemia. 8. Vitamin D deficiency. 9. History of cerebrovascular accident (CVA). 10. Left ventricular diastolic dysfunction. DISCHARGE MEDICATIONS: - amlodipine 5 mg daily - metoprolol succinate 50 mg daily - aspirin 162 mg daily - ascorbic acid 250 mg by mouth twice a day - Tylenol 650 mg by mouth every 4 hours as needed pain - colecalciferol 1000 units by mouth daily - Uloric 40 mg by mouth three times per week - fenofibrate 145 mg by mouth daily - Lasix 40 mg by mouth daily - simvastatin 10 mg at bedtime - Toujeo SoloStar 45 units at bedtime - Coumadin 5 mg in the evening HOSPITAL COURSE: This is a 76-year-old female who was seen by her primary care provider 1 week prior to admission and was found to be bradycardic. The patient was sent to [facility] and had a Holter monitor done. The patient was found to have Mobitz type I, as well as Mobitz II, 2nd-degree AV block and intermittent 2:1 AV block. The patient continued to have symptomatic bradycardia in spite of being off AV yuly-blocking agents, so she was sent to the emergency room for further evaluation, and she was subsequently admitted for placement of permanent pacemaker. On admission, the patient was found to have mild worsening of renal function with acute kidney injury on chronic kidney disease, so the patient's lisinopril and Lasix were held in the hospital. The patient underwent permanent pacemaker placement on 09/06/2016 without any issues. The patient's renal function subsequently improved, and creatinine came back to baseline. The patient's blood pressure medications were adjusted. Her lisinopril was stopped, and the patient was started on amlodipine and metoprolol. At present, the patient's is functionally at baseline, does not have any complaints, and with stable vital signs, and is being discharged home. PHYSICAL EXAMINATION: VITAL SIGNS: Temperature 98, pulse 69, respiratory rate 18, blood pressure 169/74, pulse oximetry 95% in room air. GENERAL: The patient awake, alert, oriented times three, sitting up in chair, in no acute distress. HEENT: Normocephalic, atraumatic. Moist mucous membranes. Anicteric eyes. CHEST: Clear to auscultation. CARDIOVASCULAR: S1, S2, regular. Monitor shows mostly paced rhythm. No murmur, rub, or gallop. ABDOMEN: Obese, soft, nontender. Bowel sounds present. EXTREMITIES: 1+ ankle edema. LABORATORY DATA: WBC 5.8, hemoglobin 12.6, platelet 253. Sodium 138, potassium 4.3, chloride 108, bicarbonate 25, BUN 20, creatinine 1.26, glucose 140, calcium 9.4. INR was 1.22. DISPOSITION: The patient is discharged home in a stable condition. DISCHARGE INSTRUCTIONS: The patient to followup with Dr. Gonzalez in 1 week for removal of maciej. The patient to followup with Dr. Huggins in 2 weeks. The patient to followup with primary care provider in 1 month. The patient to followup with construction operations manager in 1 week. Carbohydrate-consistent 5-zdqf-aevoad diet. Activity as tolerated.
== END 2016-09-08 13:44 | disposition home or self-care (01) | DRG 243 ==
LOC: M ED 15:44 → M ED INP 21:52 → M ICU 23:59
PROVIDERS: ADMIT Internal Medicine; ATTEND Internal Medicine Nephrology
PROC: 02HK3JZ Insertion of Pacemaker Lead into Right Ventricle, Percutaneous Approach (ICD-10-PCS; 2016-09-06)
PROC: 02H63JZ Insertion of Pacemaker Lead into Right Atrium, Percutaneous Approach (ICD-10-PCS; 2016-09-06)
PROC: 0JH606Z Insertion of Pacemaker, Dual Chamber into Chest Subcutaneous Tissue and Fascia, Open Approach (ICD-10-PCS; principal; 2016-09-06 09:00)
DX: I44.1 Atrioventricular block, second degree (principal); N17.9 Acute kidney failure, unspecified; I48.0 Paroxysmal atrial fibrillation; I12.9 Hypertensive chronic kidney disease with stage 1 through stage 4 chronic kidney disease, or unspecified chronic kidney disease; E78.5 Hyperlipidemia, unspecified; E11.9 Type 2 diabetes mellitus without complications; M10.9 Gout, unspecified; E55.9 Vitamin D deficiency, unspecified; R32 Unspecified urinary incontinence; K59.00 Constipation, unspecified; H26.9 Unspecified cataract; I51.89 Other ill-defined heart diseases; N18.3 Chronic kidney disease, stage 3 (moderate); H90.5 Unspecified sensorineural hearing loss; M19.90 Unspecified osteoarthritis, unspecified site; Z79.01 Long term (current) use of anticoagulants; Z79.899 Other long term (current) drug therapy; Z86.73 Personal history of transient ischemic attack (TIA), and cerebral infarction without residual deficits; Z79.82 Long term (current) use of aspirin; Z79.4 Long term (current) use of insulin; Z79.84 Long term (current) use of oral hypoglycemic drugs

== ENCOUNTER → 2016-10-06 | Outpatient (REF) | payer MEDICARE ==
[~2016-10-06] MED LIST changes: +AMLO5TAB2 PO; +ASCO25TA PO; +ASPI1TAB PO; +ASPI81TAEC PO; +BACT2OIN10 TOP; -BACT2OIN2 TOP; -COLA100C3 PO; +COLA100C5 PO; +FEBU40TA PO; +FENO145T PO; +FERR325T3 PO; +FURO40TA2 PO; +LISI10TA4 PO; +MAPA325T3 PO; +METO1TAB7 PO; -NYST100024 TOP; +NYST1POW9 TOP; +SIMV10TA2 PO; +TOUJ1.2I SC; +VITA-122 PO; +WARF-23 PO
[2016-10-06 12:18] LABS: INR 1.89
[2016-10-06 16:31] LABS: FERRITIN 236 NG/ML (8-252)
== END ==
LOC: M SFHCLERA 08:47
PROVIDERS: ATTEND Physician Assistant
DX: D50.9 Iron deficiency anemia, unspecified (principal); E11.22 Type 2 diabetes mellitus with diabetic chronic kidney disease; I48.0 Paroxysmal atrial fibrillation

== ENCOUNTER → 2017-01-11 | Outpatient (REF) | payer MEDICARE ==
[2017-01-11 18:21] LABS: INR 2.24
[2017-01-11 20:32] LABS: CALCIUM LEVEL 9.7 MG/DL (8.8-10.2); CREATININE FOR GFR 1.42 MG/DL (0.55-1.02); GLOMERULAR FILTRATION RATE 38.4 (>39); POTASSIUM SERUM 4.1 MEQ/L (3.5-5.1)
== END ==
LOC: M SFHCLERA 14:38
PROVIDERS: ATTEND Family Medicine
DX: E11.622 Type 2 diabetes mellitus with other skin ulcer (principal); L97.809 Non-pressure chronic ulcer of other part of unspecified lower leg with unspecified severity; I48.91 Unspecified atrial fibrillation; Z51.81 Encounter for therapeutic drug level monitoring; Z79.01 Long term (current) use of anticoagulants
CPT/HCPCS: 80048; 83036; 85610; G0463

== ENCOUNTER 2017-03-05 12:25 | Emergency (ER) | payer MEDICARE ==
[~2017-03-05] VITALS: Ht 154.9 cm; Wt 85.9 kg
[2017-03-05 12:26] VITALS: BP 159/67
[2017-03-05] MEDS ORDERED: ASPI81TA85 PO (12:42)
[2017-03-05 14:03] LABS: BASO # 0.1 10^3/uL (0.0-0.2); EOS # 0.1 10^3/uL (0.0-0.50); EOS % 1.5 % (0.0-3.0); IMMATURE GRANULOCYTE % 0.2 % (0-0); LYMPH % 32.7 % (24.0-44.0); MEAN CORPUSCULAR HEMOGLOBIN 26.8 pg (27.0-33.0); MEAN CORPUSCULAR HGB CONC 32.1 g/dl (32.0-36.5); MEAN CORPUSCULAR VOLUME 83.7 fl (80.0-96.0); MONO # 0.4 10^3/uL (0.0-0.8); NEUTROPHILS # 3.6 10^3/uL (1.8-7.7); NEUTROPHILS % 57.6 % (36.0-66.0); PLATELET COUNT, AUTOMATED 310 10^3/uL (150-450); WHITE BLOOD COUNT 6.2 10^3/uL (4.0-10.0)
[2017-03-05 14:28] LABS: ERYTHROCYTE SEDIMENTATION RATE 51 mm/hr (0-30)
[2017-03-05 14:30] LABS: CALCIUM LEVEL 9.6 MG/DL (8.8-10.2); CREATININE FOR GFR 1.31 MG/DL (0.55-1.02); GLOMERULAR FILTRATION RATE 42.1 (>39); POTASSIUM SERUM 4.2 MEQ/L (3.5-5.1)
--- NOTE | 2017-03-05 14:36 | REP ---
Clinical: Wound with pain and swelling . Technique: Sharma scale and color Doppler evaluation using linear high frequency transducer. Findings: Ultrasound examination of the right lower extremity deep venous structures from the common femoral vein to the popliteal vein demonstrates normal compressibility flow and wave patterns in response to respiration and augmentation. There is no evidence for deep venous thrombosis. Impression: No evidence for deep venous thrombosis. Signed by Vamsi Clemente MD 03/05/2017 02:28 P
[2017-03-05] MEDS ORDERED: CLEO300C2 PO (15:14)
== END 2017-03-05 15:24 | disposition home or self-care (01) ==
LOC: M ED 12:25
DX: L03.115 Cellulitis of right lower limb (principal); E11.9 Type 2 diabetes mellitus without complications; I12.9 Hypertensive chronic kidney disease with stage 1 through stage 4 chronic kidney disease, or unspecified chronic kidney disease; E78.00 Pure hypercholesterolemia, unspecified; N18.4 Chronic kidney disease, stage 4 (severe); G62.9 Polyneuropathy, unspecified; E61.1 Iron deficiency; Z79.4 Long term (current) use of insulin; Z79.899 Other long term (current) drug therapy; Z79.01 Long term (current) use of anticoagulants; Z79.82 Long term (current) use of aspirin; Z95.0 Presence of cardiac pacemaker; Z86.73 Personal history of transient ischemic attack (TIA), and cerebral infarction without residual deficits; Z87.42 Personal history of other diseases of the female genital tract

== ENCOUNTER → 2017-04-15 | Outpatient (REF) | payer MEDICARE ==
[2017-04-15 17:09] LABS: ESTIMATED AVERAGE GLUCOSE 203 MG/DL (60-110); HEMOGLOBIN A1c 8.7 %
[2017-04-15 17:13] LABS: C REACTIVE PROTEIN QUANTITATIV 0.81 MG/DL (0.00-0.30)
[2017-04-15 17:20] LABS: HEMATOCRIT 39.1 % (36.0-47.0); HEMOGLOBIN 12.6 g/dl (12.0-16.0); MEAN CORPUSCULAR HEMOGLOBIN 26.6 pg (27.0-33.0); MEAN CORPUSCULAR HGB CONC 32.2 g/dl (32.0-36.5); MEAN CORPUSCULAR VOLUME 82.5 fl (80.0-96.0); PLATELET COUNT, AUTOMATED 310 10^3/uL (150-450); RED BLOOD COUNT 4.74 10^6/uL (4.00-5.40); RED CELL DISTRIBUTION WIDTH 13.9 % (11.5-14.5); WHITE BLOOD COUNT 7.4 10^3/uL (4.0-10.0)
[2017-04-15 19:17] LABS: ERYTHROCYTE SEDIMENTATION RATE 45 mm/hr (0-30)
[2017-04-15 20:53] LABS: TOTAL 25(OH) VITAMIN D 34.2 NG/ML (30.0-100.0)
== END ==
LOC: M SFHCLERA 14:05
DX: L97.809 Non-pressure chronic ulcer of other part of unspecified lower leg with unspecified severity (principal); E11.622 Type 2 diabetes mellitus with other skin ulcer; E55.9 Vitamin D deficiency, unspecified
CPT/HCPCS: 83036

== ENCOUNTER → 2018-06-23 | Outpatient (REF) | payer MEDICARE ==
[~2018-06-23] MED LIST changes: -AMLO5TAB2 PO; +AMLO5TAB6 PO; +CLEO300C2 PO; -FENO145T PO; +FENO145T13 PO
[2018-06-23 19:25] LABS: FREE T4 1.08 NG/DL (0.76-1.46); THYROID STIMULATING HORMONE 0.899 uIU/ML (0.358-3.740)
== END ==
LOC: M LAB REF 17:37
PROVIDERS: ATTEND Internal Medicine Nephrology
DX: R60.0 Localized edema (principal)

== ENCOUNTER → 2018-08-24 | Outpatient (CLI) | payer MEDICARE ==
[~2018-08-24] MED LIST changes: -/WARF5TA PO; -ASCO25TA PO; -ASPI1TAB PO; +ASPI81TA26 PO; +COUM1TAB17 PO; +METO-1 PO; -TOPR25TA PO; +VITA1TAB23 PO
[2018-08-24 14:29] LABS: BASO # 0.1 10^3/uL (0.0-0.2); BASO % 0.9 % (0.0-1.0); EOS # 0.2 10^3/uL (0.0-0.50); EOS % 2.4 % (0.0-3.0); HEMATOCRIT 41.1 % (36.0-47.0); HEMOGLOBIN 12.9 g/dl (12.0-15.5); LYMPH # 2.1 10^3/uL (1.5-4.5); LYMPH % 27.5 % (24.0-44.0); MEAN CORPUSCULAR HEMOGLOBIN 27.3 pg (27.0-33.0); MEAN CORPUSCULAR HGB CONC 31.4 g/dl (32.0-36.5); MEAN CORPUSCULAR VOLUME 87.1 fl (80.0-96.0); MONO # 0.4 10^3/uL (0.0-0.8); MONO % 5.3 % (0.0-5.0); NEUTROPHILS # 4.7 10^3/uL (1.8-7.7); NEUTROPHILS % 63.4 % (36.0-66.0); PLATELET COUNT, AUTOMATED 335 10^3/uL (150-450); RED BLOOD COUNT 4.72 10^6/uL (4.00-5.40); WHITE BLOOD COUNT 7.5 10^3/uL (4.0-10.0)
[2018-08-24 14:31] LABS: ALBUMIN 3.6 GM/DL (3.2-5.2); BILIRUBIN,TOTAL 0.4 MG/DL (0.2-1.0); CALCIUM LEVEL 9.2 MG/DL (8.8-10.2); CHOLESTEROL RISK RATIO 2.979 (<5); CREATININE FOR GFR 1.46 MG/DL (0.55-1.30); TOTAL PROTEIN 8.1 GM/DL (6.4-8.2)
[2018-08-24 14:47] LABS: HEMOGLOBIN A1c 9.1 %
== END ==
LOC: M WUC 11:11
PROVIDERS: ATTEND Family Medicine
DX: E11.9 Type 2 diabetes mellitus without complications (principal)

== ENCOUNTER → 2019-05-25 | Outpatient (CLI) | payer MEDICARE ==
[~2019-05-25] MED LIST changes: -FEBU40TA PO; +FEBU40TA4 PO; -FENO145T13 PO; +FENO145T7 PO; -GLIM2TAB PO; +GLIM2TAB4 PO; -MECL-68 PO; +MECL1TAB31 PO; -SIMV10TA2 PO; +SIMV10TA21 PO
--- NOTE | 2019-05-25 14:00 | REP ---
Clinical: Pain. Technique: AP and frog lateral views of the right hip. Findings: Osteopenia and moderate osteoarthritic degenerative changes are appreciated including joint space narrowing and enthesopathy along the iliac crest and. Ramus. No acute fracture or dislocation. Impression: Osteopenia and arthritic changes. No acute fracture or dislocation. Electronically Signed by Vamsi Clemente MD 05/25/2019 01:52 P
--- NOTE | 2019-05-25 15:10 | REP ---
LUMBAR SPINE SERIES: Five views. HISTORY: Pain. FINDINGS: Five views of the lumbar spine demonstrate a pacemaker in place in the heart. There is some vascular calcification. Lumbar vertebral body heights are preserved. Alignment is normal. There is no evidence of spondylolysis or spondylolisthesis. There is diffuse degenerative disc disease with discogenic spurring most pronounced at L2-3, L3-4, and L4-5. Discogenic spurring is noted in the lower thoracic spine as well. Disc space narrowing is most pronounced at L4-5. There is osteoarthritic facet, sclerosis and narrowing at L4-5 and L5 S1 bilaterally. Psoas margins are symmetric. There is a levoconvex curvature in the lumbar spine. Sacrum and SI joints are intact. IMPRESSION: Degenerative spondylosis changes. No acute bony abnormality. Electronically Signed by Igor Jacobs MD 05/25/2019 05:15 P
== END ==
LOC: M WUC 12:10
PROVIDERS: ATTEND Family Medicine
DX: M25.551 Pain in right hip (principal); M85.80 Other specified disorders of bone density and structure, unspecified site

== ENCOUNTER → 2020-10-21 | Outpatient (REF) | payer MEDICARE ==
[~2020-10-21] MED LIST changes: +ACET325T42 PO; +AMLO1TAB24 PO; -AMLO5TAB6 PO; +ASCO250T20 PO; +ASPI-569 PO; +ASPI81TA86 PO; -ASPI81TAEC PO; -COUM7.5T PO; +COUM7.5T6 PO; +LISI10TA22 PO; -LISI10TA4 PO; -MAPA325T3 PO; -VITA1TAB23 PO
== END ==
LOC: M LAB REF 17:11
PROVIDERS: ATTEND Internal Medicine Nephrology
DX: E87.6 Hypokalemia (principal)

== ENCOUNTER → 2020-11-13 | Outpatient (REF) | payer MEDICARE | LOC: M LAB REF 17:40 | PROVIDERS: ATTEND Internal Medicine Nephrology | DX: N18.32 Chronic kidney disease, stage 3b (principal) ==

== ENCOUNTER → 2020-12-31 | Outpatient (CLI) | payer MEDICARE ==
[2020-12-31 12:07] LABS: APPEARANCE, URINE CLOUDY (CLEAR); BILIRUBIN, URINE AUTO NEGATIVE (NEGATIVE); BLOOD, URINE BLOOD NEGATIVE (NEGATIVE); COLOR, URINE YELLOW (YELLOW); GLUCOSE, URINE (UA) AUTO NEGATIVE (NEGATIVE); KETONE, URINE AUTO NEGATIVE (NEGATIVE); LEUKOCYTE ESTERASE, URINE AUTO 3+ (NEGATIVE); NITRITE, URINE AUTO POSITIVE (NEGATIVE); PROTEIN, URINE AUTO NEGATIVE (NEGATIVE); SPECIFIC GRAVITY URINE AUTO 1.009 (1.002-1.035); UROBILINOGEN, URINE AUTO 0.2 mg/dL (0.0-2.0)
[2020-12-31 12:08] LABS: HEMATOCRIT 43.9 % (36.0-47.0); MEAN CORPUSCULAR HEMOGLOBIN 27.4 pg (27.0-33.0); MEAN CORPUSCULAR HGB CONC 31.9 g/dl (32.0-36.5); MEAN CORPUSCULAR VOLUME 85.9 fl (80.0-96.0); PLATELET COUNT, AUTOMATED 309 10^3/uL (150-450); RED BLOOD COUNT 5.11 10^6/uL (4.00-5.40); WHITE BLOOD COUNT 9.3 10^3/uL (4.0-10.0)
[2020-12-31 12:10] LABS: BACTERIA, URINE AUTO 3+ (NEGATIVE); MUCUS, URINE SMALL (NEGATIVE); RBC, URINE AUTO 5 /HPF (0-3); SQUAMOUS EPITHELIAL CELL UR AU 16 /HPF (0-6); WBC, URINE AUTO TNTC /HPF (0-3)
[2020-12-31 12:27] LABS: HEMOGLOBIN A1c 7.5 %
[2020-12-31 12:34] LABS: ALBUMIN 3.4 GM/DL (3.2-5.2); BILIRUBIN,TOTAL 0.5 MG/DL (0.2-1.0); CALCIUM LEVEL 9.3 MG/DL (8.8-10.2); CREATININE FOR GFR 1.57 MG/DL (0.55-1.30); GLOMERULAR FILTRATION RATE 33.8 (>39); POTASSIUM SERUM 3.7 MEQ/L (3.5-5.1); TOTAL PROTEIN 7.6 GM/DL (6.4-8.2)
== END ==
LOC: M WUC 08:39
PROVIDERS: ATTEND Family Medicine
DX: R53.81 Other malaise (principal); E11.9 Type 2 diabetes mellitus without complications

== ENCOUNTER → 2021-01-02 | Outpatient (CLI) | payer MEDICARE ==
--- NOTE | 2021-01-02 15:45 | REPVR ---
PROCEDURE INFORMATION: Exam: CT Head Without Contrast Exam date and time: 01/02/2021 2:57 PM Age: 80 years old Clinical indication: Other: Weakness; Additional info: Hydrocephalus, weakness, unsteadiness TECHNIQUE: Imaging protocol: Computed tomography of the head without contrast. Radiation optimization: All CT scans at this facility use at least one of these dose optimization techniques: automated exposure control; mA and/or kV adjustment per patient size (includes targeted exams where dose is matched to clinical indication); or iterative reconstruction. COMPARISON: CT Head without contrast 09/01/2009 8:36:37 PM FINDINGS: Brain: The brain demonstrates diffuse volume loss, progressive since prior. Progressive deep white matter hypodensities probably reflecting chronic small vessel ischemic change. No visible evolving territorial infarct. No hemorrhage. Chronic appearing internal capsule lacunar infarcts. Cerebral ventricles: The ventricles are larger compared to the prior CT study probably reflecting volume loss, in particular central volume loss. Paranasal sinuses: Visualized sinuses are unremarkable. No fluid levels. Mastoid air cells: Visualized mastoid air cells are well aerated. Bones/joints: Unremarkable. No acute fracture. Soft tissues: Unremarkable. IMPRESSION: No acute intracranial abnormality seen. Electronically signed by: Sherri Padilla On 01/02/2021 15:45:28 PM
--- NOTE | 2021-01-02 15:54 | REPVR ---
PROCEDURE INFORMATION: Exam: CT Lumbar Spine Without Contrast Exam date and time: 01/02/2021 2:57 PM Age: 80 years old Clinical indication: Weakness; Additional info: Hydrocephalus, weakness, unsteadiness TECHNIQUE: Imaging protocol: Computed tomography images of the lumbar spine without contrast. Radiation optimization: All CT scans at this facility use at least one of these dose optimization techniques: automated exposure control; mA and/or kV adjustment per patient size (includes targeted exams where dose is matched to clinical indication); or iterative reconstruction. COMPARISON: CR SPINE LS COMPLETE 05/25/2019 12:37 PM FINDINGS: Vertebrae: Bone mineralization is decreased, suggestive of osteoporosis. A chronic L4 superior endplate compression fracture is present. There is mild L4 vertebral body height loss. No acute compression fracture is seen. Mild levoconvex curvature of the lumbar spine is present. Severe facet arthropathy is present in the mid to lower lumbar spine. Discs/Spinal canal/Neural foramina: Moderate degenerative changes of the lumbar spine are present. There is moderate/severe spinal canal stenosis and moderate bilateral neural foraminal narrowing L3-L4. There is mild/moderate spinal canal stenosis at L4-L5. No severe neural foraminal narrowing is present. Vasculature: Atherosclerotic calcifications are noted within the aorta and its branches. Soft tissues: There is severe atrophy and fatty replacement involving the posterior paraspinous musculature. IMPRESSION: 1. No acute abnormality. 2. Chronic findings as discussed above. Electronically signed by: Raymundo Reynolds On 01/02/2021 15:53:20 PM
== END ==
LOC: M RAD 14:45
PROVIDERS: ATTEND Psychiatry & Neurology Neurology
DX: M48.061 Spinal stenosis, lumbar region without neurogenic claudication (principal); R26.81 Unsteadiness on feet

== ENCOUNTER → 2021-01-22 | Outpatient (REF) | payer MEDICARE | LOC: M LAB REF 12:58 | PROVIDERS: ATTEND Internal Medicine Nephrology | DX: N18.32 Chronic kidney disease, stage 3b (principal) ==

== ENCOUNTER → 2021-03-10 | Outpatient (CLI) | payer MEDICARE | LOC: M WUC 14:12 | PROVIDERS: ATTEND Internal Medicine Nephrology | DX: N39.0 Urinary tract infection, site not specified (principal) ==

== ENCOUNTER → 2022-03-12 | Outpatient (CLI) | payer MEDICARE | LOC: M WUC 15:41 | PROVIDERS: ATTEND Nurse Practitioner Family | DX: R06.00 Dyspnea, unspecified (principal) ==

== ENCOUNTER → 2022-06-02 | Outpatient (CLI) | payer MEDICARE | LOC: M WUC 11:43 | PROVIDERS: ATTEND Family Medicine | DX: R05.9 Cough, unspecified (principal) ==

== ENCOUNTER → 2022-06-12 | Outpatient (CLI) | payer MEDICARE ==
[2022-06-12 16:31] LABS: CALCIUM LEVEL 9.3 MG/DL (8.3-10.6); CREATININE FOR GFR 1.28 MG/DL (0.55-1.30); GLOMERULAR FILTRATION RATE 42.6 (>32); MAGNESIUM LEVEL 2.1 MG/DL (1.8-2.4); POTASSIUM SERUM 3.9 MMOL/L (3.5-5.1)
== END ==
LOC: M WUC 11:42
PROVIDERS: ATTEND Family Medicine
DX: I50.30 Unspecified diastolic (congestive) heart failure (principal)

== ENCOUNTER → 2022-08-06 | Outpatient (REF) | payer MEDICARE | LOC: M LAB REF 17:35 | PROVIDERS: ATTEND Nurse Practitioner Family | DX: N18.4 Chronic kidney disease, stage 4 (severe) (principal); N39.0 Urinary tract infection, site not specified ==

== ENCOUNTER → 2022-11-20 | Outpatient (REF) | payer MEDICARE ==
[~2022-11-20] MED LIST changes: +BISA5TAB15 PO; +CEFD300C41 PO; +DULC5TAB PO; +ECOT81TA5 PO; +EQL50TAB2 PO; +JANU25TA PO; +METO1TAB32 PO; +PHEN1TAB73 PO; +POTA-298 PO; +SPIR-10 PO; +TORS20TA2 PO; +TRES1INJ2 SUBQ; +VITA100093 PO; +WARF-18 PO
[2022-11-20 18:34] LABS: APPEARANCE, URINE TURBID (CLEAR); BACTERIA, URINE AUTO 2+ (NEGATIVE); BILIRUBIN, URINE AUTO NEGATIVE (NEGATIVE); BLOOD, URINE BLOOD 2+ (NEGATIVE); COLOR, URINE AMBER (YELLOW); GLUCOSE, URINE (UA) AUTO NEGATIVE (NEGATIVE); KETONE, URINE AUTO NEGATIVE (NEGATIVE); LEUKOCYTE ESTERASE, URINE AUTO 3+ (NEGATIVE); NITRITE, URINE AUTO NEGATIVE (NEGATIVE); PROTEIN, URINE AUTO 1+ mg/dL (NEGATIVE); RBC, URINE AUTO 28 /HPF (0-3); SPECIFIC GRAVITY URINE AUTO 1.008 (1.002-1.035); SQUAMOUS EPITHELIAL CELL UR AU 4 /HPF (0-6); UROBILINOGEN, URINE AUTO 0.2 mg/dL (0.0-2.0); WBC, URINE AUTO TNTC /HPF (0-3)
== END ==
LOC: M LABSMT 13:49
PROVIDERS: ATTEND Urology
DX: R39.9 Unspecified symptoms and signs involving the genitourinary system (principal)

== ENCOUNTER → 2022-12-09 | Outpatient (REF) | payer MEDICARE ==
[2022-12-09 18:41] LABS: AMORPHOUS SEDIMENT SMALL (NEGATIVE); APPEARANCE, URINE TURBID (CLEAR); BACTERIA, URINE AUTO 2+ (NEGATIVE); BILIRUBIN, URINE AUTO NEGATIVE (NEGATIVE); BLOOD, URINE BLOOD 2+ (NEGATIVE); COLOR, URINE YELLOW (YELLOW); GLUCOSE, URINE (UA) AUTO 2+ mg/dL (NEGATIVE); KETONE, URINE AUTO NEGATIVE (NEGATIVE); LEUKOCYTE ESTERASE, URINE AUTO 3+ (NEGATIVE); NITRITE, URINE AUTO POSITIVE (NEGATIVE); PROTEIN, URINE AUTO 1+ mg/dL (NEGATIVE); RBC, URINE AUTO 24 /HPF (0-3); SPECIFIC GRAVITY URINE AUTO 1.009 (1.002-1.035); SQUAMOUS EPITHELIAL CELL UR AU 5 /HPF (0-6); UROBILINOGEN, URINE AUTO 0.2 mg/dL (0.0-2.0); WBC, URINE AUTO TNTC /HPF (0-3)
== END ==
LOC: M SMT 17:16
PROVIDERS: ATTEND Physician Assistant
DX: R53.83 Other fatigue (principal)

== ENCOUNTER → 2022-12-23 | Outpatient (CLI) | payer MEDICARE ==
[~2022-12-23] MED LIST changes: +MECL-209 PO; -MECL1TAB31 PO
[2022-12-23 14:55] LABS: MEAN CORPUSCULAR HEMOGLOBIN 26.9 pg (27.0-33.0); MEAN CORPUSCULAR HGB CONC 31.7 g/dl (32.0-36.5); MEAN CORPUSCULAR VOLUME 84.9 fl (80.0-96.0); PLATELET COUNT, AUTOMATED 324 10^3/uL (150-450); RED BLOOD COUNT 4.83 10^6/uL (4.00-5.40); WHITE BLOOD COUNT 10.3 10^3/uL (4.0-10.0)
[2022-12-23 15:16] LABS: INR 1.97; PROTHROMBIN TIME 21.9 SECONDS (12.5-14.5)
[2022-12-23 15:17] LABS: PARTIAL THROMBOPLASTIN TIME 34.4 SECONDS (24.8-34.2)
[2022-12-23 15:32] LABS: ALBUMIN 3.4 G/DL (3.2-5.2); BILIRUBIN,TOTAL 0.6 MG/DL (0.3-1.2); CALCIUM LEVEL 9.5 MG/DL (8.3-10.6); CREATININE FOR GFR 1.52 MG/DL (0.55-1.30); GLOMERULAR FILTRATION RATE 34.9 (>32); POTASSIUM SERUM 3.4 MMOL/L (3.5-5.1); TOTAL PROTEIN 7.6 G/DL (5.7-8.2)
== END ==
LOC: M LAB 14:22
PROVIDERS: ATTEND Urology
DX: N20.1 Calculus of ureter (principal); Z79.01 Long term (current) use of anticoagulants

== ENCOUNTER → 2022-12-29 | Outpatient (REF) | payer MEDICARE | LOC: M SMT 12:33 | PROVIDERS: ATTEND Urology | DX: N20.1 Calculus of ureter (principal) ==

== ENCOUNTER → 2025-01-30 | Outpatient (CLI) | payer MEDICARE ==
[~2025-01-30] MED LIST changes: +CEFD1CAP9 PO; -CEFD300C41 PO; -EQL50TAB2 PO; +NYST1POW3 TOP; -NYST1POW9 TOP; +VITA1TAB82 PO
== END ==
LOC: M RAD 12:37
PROVIDERS: ATTEND Family Medicine
DX: M79.602 Pain in left arm (principal); I70.208 Unspecified atherosclerosis of native arteries of extremities, other extremity